=== PATIENT | female | born 1980 | race Caucasian/White ===

== ENCOUNTER 2024-09-30 09:34 | Outpatient (AMB) | payer OTHER, SELFPAY ==
--- NOTE | 2024-09-30 09:35 | MHC.OFFVIS ---
Vital Signs 09/30/24 09:43 Height 5 ft 8 in Weight 184 lb 8.43 oz BMI 28.1 BP 112/60 Blood Pressure Location Lt brachial Position Sitting Respiration 16 Pulse 84 Pulse Source Pulse Oximeter Pulse Oximetry (%) 97 Oxygen Delivery Method Room Air Intake Visit Reasons: polyarthritis Intake Note: Patient presents for Polyarthritis. Allergies No Known Allergies Allergy (Verified 09/30/24 09:39) HPI Comments Details: Patient is a 44 year old female with GERD on omeprazole, presents for evaluation of polyarthralgias. Joint pain for 3 years - Knees Going up the stairs At night after long Stiffness in the AM. Improves after 5-10 minutes No history of swelling to the knees - Wrists At night especially after overuse in the day No history of swelling to the wrists - Fingers No AM stiffness Does note numbness in the fingers at night Does note swelling in the fingers at time particularly with changes in temperature Pain is not significant that she feels she needs to take medication Currently works in an office. Self employed. Mom with RA (diagnosed in her 30s) Patient is concerned that she may have RA Denies rashes, photosensitivity, alopecia, oral/nasal ulcers, sicca symptoms, lymphadenopathy, chest pain/shortness of breath, foamy urine, lower extremity edema, muscle weakness, Raynaud's Also denies history of seizure, CVA, psychosis, history of kidney problems, history of cytopenias, history of VTE including PE or DVTs OB History: . No history of preeclampsia PFSH Medical History (Updated 09/30/24 @ 10:20 by Kassie Mckinley MD) Osteoarthritis Family History (Updated 09/30/24 @ 09:42 by LUIS MANUEL Cabrera) Mother Rheumatoid arthritis Social History (Updated 09/30/24 @ 09:43 by LUIS MANUEL Cabrera) Household Members: Family Housing: House Alcohol intake: current Comment: OCC Patient Tobacco Use Status: Never used Tobacco Review of Systems Const Details: Review of Systems Constitutional: Denies fever, chills, weight loss ENT: Denies vision changes, eye pain or eye redness, dental caries, dry mouth GI: Denies nausea, vomiting, diarrhea, abdominal pain, change in BM Pulm: Denies SOB, APPLE, hemoptysis, wheezing Cards: Denies chest pain, palpitations Skin: Denies Raynaud's, rash, nail changes, photosensitivity, [employer]ODUCTION [employer]: Denies headaches, weakness, paresthesias, recurrent falls MSK: as per HPI All other systems reviewed and are unremarkable except noted above Physical Exam Vital Signs: Last Vital Signs Pulse 84 09/30/24 09:43 Resp 16 09/30/24 09:43 BP 112/60 09/30/24 09:43 Pulse Ox 97 09/30/24 09:43 Oxygen Delivery Method Room Air 09/30/24 09:43 BMI result Body Mass Index 28.1 Physical Examination CONSTITUITIONAL Patient alert and cooperative. Well appearing and in no apparent painful distress HEENT Conjunctiva and sclera clear. Pupils equal round and reactive to light. No lymphadenopathy. CHEST/RESPIRATORY SYSTEM Normal respiratory effort and able to speak in complete sentences. Clear to auscultation bilaterally. No crackles, rales, rhonchi, wheezes heard. CARDIAC SYSTEM Regular rate and rhythm. S1 and S2 heard no murmurs. 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 Herbedens nodes R - 2nd, 3rd, 5th PIP; L 4th, 5th PIP. +ve CMC (R+L) grind test. No synovitis noted to the MCPs, PIPs or DIPs. No tenderness to palpation of these joints. Wrists: Full range of motion at the wrists without pain. No tenderness to palpation or synovitis noted to the wrists. Elbows: Full range of motion without pain. No tenderness, weakness, swelling, increased warmth or erythema. Shoulders: Full range of motion without pain. No tenderness, weakness, swelling, increased warmth or erythema. Hips: Full range of motion without pain. Hip bursa: No tenderness to palpation Knees: Full range of motion. No tenderness, swelling, increased warmth or erythema.?No effusion or crepitations Ankles: Full range of motion. No tenderness, swelling, increased warmth or erythema.? Feet: Negative squeeze test. No tenderness to palpation or swelling of the MTPs. Tender points:? No tenderness to palpation of the neck, shoulders, chest, elbows, hips, buttocks or knees. SKIN Skin intact without rashes. Results Reviewed Results Reviewed: 06/2024 ESR 11 UA 3.7 ANNAMARIE negative RF <10 Lyme disease screen negative Assessment & Plan Assessment & Plan (1) Osteoarthritis: Code(s): M19.90 - Unspecified osteoarthritis, unspecified site Category: Medical Qualifiers: Osteoarthritis location: multiple joints Osteoarthritis type: primary Qualified Code(s): M15.0 - Primary generalized (osteo)arthritis Plan: #Early OA Patient's exam and history is consistent with early osteoarthritis. Exam shows Heberden's nodes noted to various PIPs and no evidence of synovitis. Discussed these findings with the patient. No evidence to suggest rheumatoid arthritis with a normal ESR and negative RF. No further blood work needed Plan - trial of glucosamine chondroitin supplements - continue activity - XR Hands, wrists and knees - RTC p.r.n. Plan I spent 35 minutes reviewing the record and labs, seeing the patient, discussing the treatment plan and documenting in the medical record ? Orders: Orders XR knee RT 3V Today M19.90 - Unspecified osteoarthritis, unspecified site XR knee standing BI Today M19.90 - Unspecified osteoarthritis, unspecified site XR hand wrist LT Today M19.90 - Unspecified osteoarthritis, unspecified site XR hand wrist RT Today M19.90 - Unspecified osteoarthritis, unspecified site XR knee LT 3V Today M19.90 - Unspecified osteoarthritis, unspecified site Coding Level of Care Code New Pt Level 4 (46575) Diagnoses Primary osteoarthritis involving multiple joints M15.0 Osteoarthritis location: multiple joints Osteoarthritis type: primary
[2024-09-30 09:43] VITALS: BP 112/60; PULSE 84; RESP 16; O2SAT 97; BMI 28.1
== END 2024-09-30 10:20 | disposition home or self-care (01) ==
PROVIDERS: Visit Provider Student in an Organized Health Care Education/Training Program
DX: M15.0 Primary generalized (osteo)arthritis (principal)
CPT/HCPCS: 99204

== ENCOUNTER → 2024-09-30 09:34 | Outpatient (BNVA) | payer OTHER, SELFPAY | PROVIDERS: Visit Provider Student in an Organized Health Care Education/Training Program | DX: M25.50 Pain in unspecified joint (principal); M15.0 Primary generalized (osteo)arthritis | CPT/HCPCS: 99202 ==